=== PATIENT | male | born 1950 | race Caucasian/White ===

== ENCOUNTER → 2020-10-22 | Outpatient (CLI) | payer MEDICARE ==
[~2020-10-22] MED LIST: ASPIRIN 81M81 MG/TA2 PO; ASPIRIN E.C. 8181 MG PO; CITRACAL + D CA1 TAB; CITRACAL PLUS; CRESTOR20 MG PO; GLUCOPHAGE1000 MG PO; HCTZ 25MG TAB25 MG PO; LASIX 40MG TABL40 MG PO; LEVOXYL0.125 MG PO; MASON NATURAL2000 IU PO; PLAVIX 75MG TAB75 MG PO; TOPROL XL100 MG PO; ZESTRIL 10MG10 MG PO
== END ==
LOC: COL.LAB 08:00 → COL.CAR 11-06 06:00 → EDSTATUS 11-06 06:00
DX: Z20.828 Contact with and (suspected) exposure to other viral communicable diseases (principal)

== ENCOUNTER 2020-10-28 11:11 | Day surgery (SDC) | payer MEDICARE, OTHER ==
[~2020-10-28] VITALS: Ht 177.8 cm; Wt 177.0 kg
[2020-10-28] VITALS (9 sets, daily range): BP systolic 116–149; BP diastolic 68–91; PULSE 55–65; TEMP 98.6
[2020-10-28] MEDS ORDERED: TOPROL XL100 MG PO (12:28)
[2020-10-28] MEDS ORDERED: HCTZ 25MG TAB25 MG PO (12:29)
[2020-10-28] MEDS ORDERED: CITRACAL + D CA1 TAB (12:30)
[2020-10-28] MEDS ORDERED: ZESTRIL 10MG10 MG PO (12:31)
[2020-10-28] MEDS ORDERED: CITRACAL PLUS (12:31)
[2020-10-28] MEDS ORDERED: MASON NATURAL2000 IU PO (12:32)
[2020-10-28] MEDS ORDERED: LEVOXYL0.125 MG PO (12:42)
[2020-10-28] MEDS ORDERED: GLUCOPHAGE1000 MG PO (12:43)
[2020-10-28 13:07] LABS: HEMOGLOBIN 13.4 g/dl (13.5-18.0); MEAN CELL VOLUME 91 fl (80.0-100.0); MEAN CORPUSCULAR HEMOGLOBIN 30 pg (27.0-31.0); MEAN CORPUSCULAR HGB CONC 33 g/dl (33.0-37.0); MEAN PLATELET VOLUME 10.9 fl (7.4-10.4); PLATELET COUNT 260 K/mm3 (130-400); PROTHROMBIN TIME 11.3 SECONDS (9.7-12.8); RED BLOOD COUNT 4.49 M/mm3 (4.20-5.60); REDCELL DISTRIBUTION WIDTH-CV 12.1 % (11.5-14.5)
[2020-10-28 13:11] LABS: CREATININE, serum 1.19 (0.66-1.25); POTASSIUM 4.4 mmol/L (3.4-5.0)
--- NOTE | 2020-10-28 13:24 | NUR ---
SEE MEREZION FOR ALL MEDICATION ADMINISTRATION TIMES, INTRA AND POST SEDATION ASSESSMENTS
[2020-10-28] MEDS ORDERED: CRESTOR20 MG PO (14:10)
[2020-10-28] MEDS ORDERED: ASPIRIN 81M81 MG/TA2 PO (14:10)
[2020-10-28] MEDS ORDERED: LASIX 40MG TABL40 MG PO (14:11)
[2020-10-28] MEDS ORDERED: PLAVIX 75MG TAB75 MG PO (14:11)
--- NOTE | 2020-10-28 14:15 | NUR ---
PT RECEIVED FROM HEAVY MEDIA OPERATOR VIA BED TO EU 12. AWAKE AND ALERT. NO C/O PAIN, PT PUT ON TELE. REVIEWED ACTIVITY ORDERS WITH PT. CALL LIGHT IN REACH, AND FOOD TRAY ORDERED.
--- NOTE | 2020-10-28 15:00 | NUR ---
DR GODINEZ INTO SEE PT, TALKED ABOUT FOLLOWUP WITH INTERVENTION AND NEW MEDS. EMAIL ADDRESS FROM PT SENT TO DR CRUZ TO INFORM EMPLOYER CONCERNING NOT WORKING AT THIS TIME. PT UP TO B/R TO VOID, PT ATE LUNCH NO C/O
--- NOTE | 2020-10-28 16:15 | NUR ---
AIR RELEASED FROM BAND AT 1615, 2CC AT A TIME OVER 20 MIN, REVIEWED DISCHARGE INST. WITH PT ON ACTIVITY AND CARE OF SITE, OFFICE CALLED AND LEFT MESSAGE FOR FOLLOWUP APPT. 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
--- NOTE | 2020-10-28 16:50 | NUR ---
TR BAND REMOVED WITH NO SWELLING OR BLEEDING NOTED. INT D'CD INTACT, PT UP IN ROOM DRESSED. DISCHARGED VIA W/C TO CAR WITH
== END 2020-10-28 16:50 | disposition home or self-care (01) ==
LOC: COL.CAR 11:11
PROVIDERS: Internal Medicine Cardiovascular Disease
DX: I25.10 Atherosclerotic heart disease of native coronary artery without angina pectoris (principal); I10 Essential (primary) hypertension; E78.5 Hyperlipidemia, unspecified; Z79.84 Long term (current) use of oral hypoglycemic drugs; Z98.52 Vasectomy status
CPT/HCPCS: C1887; J1644; J1940; J2250; J3010; J7030; Q9967

== ENCOUNTER 2020-11-29 08:15 | Day surgery (SDC) | payer MEDICARE ==
[2020-11-29] VITALS (12 sets, daily range): BP systolic 109–139; BP diastolic 62–86; PULSE 53–66; TEMP 97.5
[~2020-11-29] VITALS: Ht 177.8 cm; Wt 169.3 kg
[~2020-11-29 08:15] MED LIST changes: -ASPIRIN E.C. 8181 MG PO
[2020-11-29 09:01] LABS: HEMOGLOBIN 13.9 g/dl (13.5-18.0); MEAN CELL VOLUME 91 fl (80.0-100.0); MEAN CORPUSCULAR HEMOGLOBIN 30 pg (27.0-31.0); MEAN CORPUSCULAR HGB CONC 33 g/dl (33.0-37.0); MEAN PLATELET VOLUME 10.7 fl (7.4-10.4); PLATELET COUNT 218 K/mm3 (130-400); RED BLOOD COUNT 4.61 M/mm3 (4.20-5.60); REDCELL DISTRIBUTION WIDTH-CV 12.2 % (11.5-14.5)
[2020-11-29] MEDS ORDERED: ASPIRIN E.C. 8181 MG PO (09:02)
[2020-11-29] MEDS ORDERED: PLAVIX 75MG TAB75 MG PO (09:03)
[2020-11-29] MEDS ORDERED: LASIX 40MG TABL40 MG PO (09:03)
[2020-11-29] MEDS ORDERED: CRESTOR20 MG PO (09:04)
[2020-11-29 09:08] LABS: BAND 1 % (0-10); LYMPHOCYTE 15 % (20.0-51.0); NEUTROPHILS 80 % (42.0-75.2); PLATELET ESTIMATE NORMAL (NORMAL)
[2020-11-29 09:44] LABS: PROTHROMBIN TIME 11.3 SECONDS (9.7-12.8)
[2020-11-29 09:47] LABS: PARTIAL THROMBOPLASTIN TIME 29.5 SECONDS (26.0-37.0)
--- NOTE | 2020-11-29 10:12 | NUR ---
SEE MERGE DOCUMENTATION FOR MEDICATION ADMINISTRATION TIMES AND INTRA/POST PROCEDURE SEDATION ASSESSMENTS. VERBAL ORDER FROM MD FOR 300MG PLAVIX PO PRIOR TO PROCEDURE; ADMINISTERED IN EU.
[2020-11-29 10:15] LABS: CALCIUM 9.2 mg/dL (8.4-10.2); CREATININE, serum 1.35 (0.66-1.25); POTASSIUM 4.3 mmol/L (3.4-5.0)
--- NOTE | 2020-11-29 10:58 | NUR ---
Initial visit; Patient thanked Home Health Scheduler for offering encouragement and prayer prior to his surgical procedure.
--- NOTE | 2020-11-29 14:15 | NUR ---
Pt care assumed from Juanita SONI at this time. Pt moved up in bed, and hob elevated to 30 degrees. rt groin site remains soft, vitals remain stable. lunch ordered. pt has been able to use urinal with no trouble with some assist. call light in reach.
--- NOTE | 2020-11-29 19:00 | NUR ---
PT'S BEDREST IS OVER, PT IS AMBULATORY IN ROOM WITH NO PROBLEM WITH CANE. NO CHANGES IN RT GROIN SITE WITH AMBULATION OR GETTING DRESSED. I REVIEWED DC AND FU INSTRUCTIONS WITH PT WHO VERBALIZED UNDERSTANDING. PT'S IV WAS DC'D, CATH INTACT, DRESSING APPLIED. PT TO EXIT VIA WHEELCHAIR AT APPROX 1745
== END 2020-11-29 18:00 | disposition home or self-care (01) ==
LOC: COL.CAR 08:15
PROVIDERS: Internal Medicine Cardiovascular Disease
DX: I25.10 Atherosclerotic heart disease of native coronary artery without angina pectoris (principal); I10 Essential (primary) hypertension; E78.5 Hyperlipidemia, unspecified; E11.9 Type 2 diabetes mellitus without complications; E66.01 Morbid (severe) obesity due to excess calories; M19.90 Unspecified osteoarthritis, unspecified site
CPT/HCPCS: J1644; J1940; J2250; J3010; J7030; Q9967